=== PATIENT | male | born 1985 ===

== ENCOUNTER 2017-02-19 23:42 | Emergency (ER) | payer OTHER ==
[2017-02-19 23:56] VITALS: RESP 20
[2017-02-20] MEDS ORDERED: Tetanus/Diphtheria Toxoids 0.5 ml Syringe IM ONE ×2 (00:45→00:57)
[2017-02-20] MEDS ORDERED: Bacitracin 500 Units/gm Oint Foilpak UD ONE ×2 (01:02→01:14)
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
[2017-02-20 01:35] VITALS: BP 111/75; PULSE 90; TEMP 98.5
[2017-02-20 02:38] VITALS: O2SAT 99
== END 2017-02-20 01:34 | disposition home or self-care (01) ==
LOC: C.ER 23:42
DX: S00.81XA Abrasion of other part of head, initial encounter (principal); S60.511A Abrasion of right hand, initial encounter; S80.212A Abrasion, left knee, initial encounter; S80.211A Abrasion, right knee, initial encounter; Y04.8XXA Assault by other bodily force, initial encounter; Y92.410 Unspecified street and highway as the place of occurrence of the external cause